=== PATIENT | female | born 1995 | race Hispanic/Latino ===

== ENCOUNTER 2021-01-29 16:07 | Emergency (ER) | payer OTHER ==
[2021-01-29 18:43] LABS: Urine Blood 1+ (Negative); Urine Glucose Negative (Negative); Urine Protein Negative (Negative); Urine Specific Gravity >=1.030 (1.005-1.030); Urine pH 6.5 (5.0-7.0)
[2021-01-29 19:34] LABS: Urine Bacteria <20 /HPF (<20); Urine RBC <5 /HPF (NONE SEEN)
--- NOTE | 2021-01-29 19:56 | RAD REPORT ---
EXAM DESCRIPTION: US - Matter Rosemarie Tm 1 - 01/29/2021 7:41 pm CLINICAL HISTORY: VAGINAL BLEEDING Early . COMPARISON: <Comparisons> FINDINGS: A single gestational sac is seen within the uterus. The shape of the sac is within normal limits for gestational age. Within the sac is a single fetus with estimated gestational age of 15 wee ks 6 days. Estimated date of delivery is 07/17/2021. Heart rate is 149 BPM. Placenta is posterior low lying. The maternal adnexa and ovaries are within normal limits. Normal Doppler blood flow was demonstrated to both ovaries. IMPRESSION: Single live early intrauterine gestation with estimated gestational age of 15 weeks 6 da ys, YESSICA 07/17/2021. Posterior low-lying placenta.
[2021-01-29 19:57] LABS: BUN Blood Urea Nitrogen 8 mg/dL (7-18); Bicarbonate 23 mmol/L (21-32); Glucose Level 111 mg/dL (74-106); HCG, Quantitative 15514 mIU/mL (1-3); Potassium 3.3 mmol/L (3.5-5.1); Sodium Level 138 mmol/L (136-145)
[2021-01-29 20:27] LABS: Urine Specific Gravity/Preg >1.030 (1.005-1.030)
[2021-01-29 20:36] LABS: Absolute Lymphocytes (CBC) 1.9 K/uL (0.7-4.9); Basophils % 0.3 % (0-1.3); Hematocrit 32.1 % (36.0-45.0); MPV 9.5 fL (7.6-11.3); RBC Red Blood Cell Count 3.26 M/uL (3.86-4.86)
--- NOTE | 2021-01-29 21:59 | EDPHYS ---
Physician Documentation [facility] Name: Angely Farris Age: 25 yrs Sex: Female : 1995 Arrival Date: 01/29/2021 Time: 16:08 Bed 26 Private MD: ED Physician José Manuel Tompkins HPI: 01/29 19:03 This 25 yrs old Female presents to ER via Ambulatory with complaints of pm1 Vaginal Bleeding - 16 wks preg, Pelvic Pain. 19:03 The patient presents with vaginal bleeding that is light, with wiping only. Onset: The pm1 symptoms/episode began/occurred today. Modifying factors: The symptoms are alleviated by nothing, the symptoms are aggravated by nothing. Associated signs and symptoms: Pertinent positives: cramping, Pertinent negatives: diarrhea, dysuria, fever, nausea, vomiting. Severity of symptoms: in the emergency department the symptoms have improved. The patient is sexually active. The patient's method of control includes nothing. The patient has not experienced similar symptoms in the past. The patient has been recently seen by a physician: Dr. Mcbride. Has been seeing him every 3 weeks during this . 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 - Social history:: Smoking status: Patient denies any tobacco usage or history of. ROS: 19:03 Positive for vaginal bleeding, Negative for urinary symptoms, vaginal discharge. pm1 19:03 Constitutional: Negative for fever, chills, and weight loss, Cardiovascular: Negative for chest pain, palpitations, and edema, Respiratory: Negative for shortness of breath, cough, wheezing, and pleuritic chest pain. 19:03 Back: Negative for injury and pain, MS/Extremity: Negative for injury and deformity, Skin: Negative for injury, rash, and discoloration. 19:03 Eyes: Negative for injury, pain, redness, and discharge, ENT: Negative for injury, pain, and discharge, Neuro: Negative for headache, weakness, numbness, tingling, and seizure. 19:03 Abdomen/GI: Positive for abdominal cramps, of the suprapubic area, Negative for nausea, vomiting, and diarrhea. 19:03 : Positive for vaginal bleeding, Negative for urinary symptoms. Exam: 19:03 Constitutional: This is a well developed, well nourished patient who is awake, alert, pm1 and in no acute distress. Head/Face: Normocephalic, atraumatic. 19:03 Back: No spinal tenderness. No costovertebral tenderness. Full range of motion. 19:03 Skin: Warm, dry with normal turgor. Normal color with no rashes, no lesions, and no evidence of cellulitis. MS/ Extremity: Pulses equal, no cyanosis. Neurovascular intact. Full, normal range of motion. 19:03 ENT: External ear(s): are unremarkable, Mouth: Oral mucosa: normal, pink and intact, moist, Voice: no acute changes. 19:03 Cardiovascular: Rate: normal, Rhythm: regular, Pulses: no pulse deficits are appreciated, Edema: is not appreciated. 19:03 Respiratory: Exam negative for acute changes, respiratory distress, shortness of breath, Breath sounds: are clear throughout. 19:03 Abdomen/GI: Inspection: gravid appearance, is noted, Palpation: abdomen is soft and non-tender, in all quadrants. 19:03 Neuro: Exam negative for acute changes, Orientation: is normal, Motor: is normal, moves all fours. Vital Signs: 16:54 BP 101 / 66; Pulse 77; Resp 17 S; Temp 97.9(TE); Pulse Ox 99% on R/A; Weight 52.62 kg jd3 (R); Height 4 ft. 11 in. (149.86 cm) (R); Pain 8/10; 20:32 BP 105 / 61; Pulse 77; Resp 18; Pulse Ox 100% on R/A; zb 21:38 Pulse 78; Resp 16; Pulse Ox 99% on R/A; zb 16:54 Body Mass Index 23.43 (52.62 kg, 149.86 cm) jd3 MDM: 18:46 Patient medically screened. pm1 20:51 Data reviewed: vital signs. Data interpreted: Pulse oximetry: on room air. pm1 21:58 Counseling: I had a detailed discussion with the patient and/or guardian regarding: the pm1 historical points, exam findings, and any diagnostic results supporting the discharge/admit diagnosis, lab results, radiology results, the need for outpatient follow up, an OB/Gyne specialist, to return to the emergency department if symptoms worsen or persist or if there are any questions or concerns that arise at home. 01/29 18:43 Order name: Urine Dipstick-Ancillary EDMD 01/29 18:53 Order name: Urine Microscopic Only; Complete Time: 19:43 pm1 01/29 18:53 Order name: Quantitative Hcg; Complete Time: 20:08 pm1 01/29 18:53 Order name: Abo/rh Typing; Complete Time: 21:59 pm1 01/29 18:53 Order name: Basic Metabolic Panel; Complete Time: 20:08 pm1 01/29 18:53 Order name: CBC with Diff pm1 01/29 18:53 Order name: Urine Test (obtain specimen); Complete Time: 19:17 pm1 01/29 18:53 Order name: IV Saline Lock; Complete Time: 19:17 pm1 01/29 18:53 Order name: Labs collected and sent; Complete Time: 19:17 pm1 01/29 18:53 Order name: NPO; Complete Time: 19:00 pm1 01/29 18:53 Order name: Urine Dipstick-Ancillary (obtain specimen); Complete Time: 19:17 pm01/29 19:44 Order name: Matter Eval Tm 1; Complete Time: 20:08 [facility] 01/29 19:55 Order name: Urine --Ancillary (enter results); Complete Time: 20:40 tt3 Administered Medications: No medications were administered Disposition: 01/30 06:52 Co-signature as Attending Physician, José Manuel Tompkins MD. rn Disposition: 01/29/21 21:58 Discharged to Home. Impression: Threatened . - Condition is Stable. - Discharge Instructions: Threatened Miscarriage, Pelvic Rest. - Medication Reconciliation Form, Thank You Letter, Antibiotic Education, Prescription Opioid Use form. - Follow up: Asif Reyes MD; When: 2 - 3 days; Reason: Recheck today's complaints, Continuance of care, Re-evaluation by your physician. - Problem is new. - Symptoms have improved. Signatures: Dispatcher [employer] EDMS José Manuel Tompkins MD MD rn Marinas, Patrick, HEARING HEALTHCARE PRACTITIONER HEARING HEALTHCARE PRACTITIONER pm1 Keon Daniels RN RN Gloria Diane RN RN zb Corrections: (The following items were deleted from the chart) 01/29 19:44 18:54 Transvaginal Ob+US.RAD.BRZ ordered. [facility] 22:16 21:58 01/29/2021 21:58 Discharged to Home. Impression: Threatened . Condition zb is Stable. Forms are Medication Reconciliation Form, Thank You Letter, Antibiotic Education, Prescription Opioid Use. Follow up: Asif Reyes; When: 2 - 3 days; Reason: Recheck today's complaints, Continuance of care, Re-evaluation by your physician. Problem is new. Symptoms have improved. pm1
--- NOTE | 2021-01-29 21:59 | ER ---
Nurse's Notes [facility] Name: Angely Farris Age: 25 yrs Sex: Female : 1995 Arrival Date: 01/29/2021 Time: 16:08 Bed 26 Private MD: Diagnosis: Threatened Presentation: 01/29 16:52 Chief complaint: Patient states: "I am currently 16 weeks . I am having jd3 cramping that started to get more regular to the point were all of a sudden I am having spotting now. 3 rd .". Coronavirus screen: At this time, the client does not indicate any symptoms associated with coronavirus-19. Ebola Screen: Patient negative for fever greater than or equal to 101.5 degrees Fahrenheit, and additional compatible Ebola Virus Disease symptoms. Initial Sepsis Screen: Does the patient meet any 2 criteria? No. Patient's initial sepsis screen is negative. Does the patient have a suspected source of infection? No. Patient's initial sepsis screen is negative. Risk Assessment: Do you want to hurt yourself or someone else? Patient reports no desire to harm self or others. Onset of symptoms was January 29, 2021. 16:52 Method Of Arrival: Ambulatory jd3 16:52 Acuity: CYNDI 3 jd3 Triage Assessment: 22:14 General: Behavior is calm, cooperative. 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 - Social history:: Smoking status: Patient denies any tobacco usage or history of. Screenin:20 Abuse screen: Denies threats or abuse. Denies injuries from another. Nutritional zb screening: No deficits noted. Tuberculosis screening: No symptoms or risk factors identified. Fall Risk None identified. Assessment: 19:00 General: Appears in no apparent distress. uncomfortable. Pain: Complains of pain in zb groin, right femoral area and left femoral area Pain currently is 6 out of 10 on a pain scale. Quality of pain is described as crampy, Pain began 1 day ago. Neuro: Level of Consciousness is awake, alert, obeys commands, Oriented to person, place, time, situation. Cardiovascular: Heart tones S1 S2. Respiratory: Airway is patent Respiratory effort is even, unlabored, Respiratory pattern is regular, symmetrical. GI: Patient currently denies abdominal pain, diarrhea, nausea, vomiting. : Urine is clear, Reports pain in suprapubic area vaginal bleeding that is bright red, light flow, since yesterday. does not currently report any bleeding at this time. Derm: Skin is intact, is healthy with good turgor, Skin is dry, Skin is normal. Musculoskeletal: Circulation, motion, and sensation intact. Range of motion: intact in all extremities. 19:20 Reassessment: patient made aware that she is currently NPO at the moment. PVU. zb 19:40 Reassessment: Reassessment: Us at bedside. zb 20:12 Reassessment: ECP at bedside. zb 20:35 Reassessment: Patient appears in no apparent distress at this time. Patient and/or zb family updated on plan of care and expected duration. Pain level reassessed. Patient is alert, oriented x 3, equal unlabored respirations, skin warm/dry/pink. patient waiting results. no changes at this time. denies any current bleed at this time. 21:37 Reassessment: Patient appears in no apparent distress at this time. Patient and/or zb family updated on plan of care and expected duration. Pain level reassessed. Patient is alert, oriented x 3, equal unlabored respirations, skin warm/dry/pink. patient waiting for blood results. family remains at bedside. Vital Signs: 16:54 BP 101 / 66; Pulse 77; Resp 17 S; Temp 97.9(TE); Pulse Ox 99% on R/A; Weight 52.62 kg jd3 (R); Height 4 ft. 11 in. (149.86 cm) (R); Pain 8/10; 20:32 BP 105 / 61; Pulse 77; Resp 18; Pulse Ox 100% on R/A; zb 21:38 Pulse 78; Resp 16; Pulse Ox 99% on R/A; zb 16:54 Body Mass Index 23.43 (52.62 kg, 149.86 cm) [facility] ED Course: 16:08 Patient arrived in ED. as 16:54 Triage completed. jd3 16:56 Arm band placed on. jd3 18:28 Glorai Martin RN is Primary Nurse. zb 18:46 Teddy Bynum NP is PHCP. pm1 18:46 José Manuel Tompkins MD is Attending Physician. pm1 19:20 Patient has correct armband on for positive identification. Pulse ox on. NIBP on. Door zb closed. Noise minimized. 19:20 Inserted saline lock: 20 gauge in right antecubital area, using aseptic technique. zb Blood collected. 19:44 Matter Eval Tm 1 In Process Unspecified. EDMS 21:58 Asif Reyes MD is Referral Physician. pm1 22:14 Urine Dipstick-Ancillary Sent. zb 22:14 No provider procedures requiring assistance completed. IV discontinued, intact, zb bleeding controlled, No redness/swelling at site. Pressure dressing applied. Administered Medications: No medications were administered Outcome: 21:58 Discharge ordered by . pm1 22:15 Discharged to home ambulatory. zb 22:15 Condition: stable 22:15 Discharge instructions given to patient, family, Instructed on discharge instructions, follow up and referral plans. Demonstrated understanding of instructions, follow-up care. 22:16 Patient left the ED. zb Signatures: Dispatcher [employer] EDMariela Bauer as Teddy Bynum NP [employer] pm1 Koen Daniels RN RN jGloria Berg RN RN zb
[2021-01-30 00:42] VITALS: BP 105/61
[2021-01-30 00:44] VITALS: O2SAT 99
== END 2021-01-29 22:16 | disposition home or self-care (01) ==
LOC: ER 16:07
DX: O20.0 Threatened abortion (principal); Z3A.16 16 weeks gestation of pregnancy
CPT/HCPCS: 36415; 76801; 80048; 81003; 81015; 81025; 84702; 85025; 86900; 86901; 99284

== ENCOUNTER 2021-06-28 08:31 | Inpatient (IN) | payer OTHER ==
[2021-06-28] MEDS ORDERED: Ringers Lactate 1,000 ML IV PRN (11:51)
[2021-06-28] MEDS ORDERED: PROMETHAZINE INJ 25 MG/ML AMP IV PRN (11:51)
[2021-06-28] MEDS ORDERED: METHYLERGONOVINE 0.2MG/ML AMP IM PRN ×2 (11:51→20:24)
[2021-06-28] MEDS ORDERED: BUTORPHANOL 1 MG/ML INJ IV PRN (11:51)
[2021-06-28] MEDS ORDERED: CARBOPROST TROME 250 MCG/ML IM PRN (11:51)
[2021-06-28] MEDS ORDERED: Ringers Lactate 1,000 ML IV ONE (11:57)
[2021-06-28] MEDS ORDERED: OXYTOCIN/LR 20 UNIT/1,000 ML BAG IV SCH ×2 (12:00→22:00)
[2021-06-28] MEDS ORDERED: Ringers Lactate 1,000 ML IV SCH (12:00)
[2021-06-28 12:12] VITALS: BMI 26.5
[2021-06-28 12:32] LABS: Basophils % 0.4 % (0-1.3); Hematocrit 33.2 % (36.0-45.0); Lymphocytes % 23.6 % (15.3-44.8); MPV 8.8 fL (7.6-11.3); RBC Red Blood Cell Count 3.33 M/uL (3.86-4.86)
[2021-06-28 12:43] LABS: Urine Appearance CLOUDY (Clear); Urine Bilirubin NEGATIVE (Negative); Urine Blood 2+ (Negative); Urine Color YELLOW (Yellow); Urine Glucose NEGATIVE (Negative); Urine Protein NEGATIVE (Negative); Urine Urobilinogen 0.2 mg/dL (0.2-1.0)
[2021-06-28 13:08] LABS: Urine Bacteria 20-50 /HPF (<20); Urine RBC >50 /HPF (NONE SEEN)
[2021-06-28] MEDS ORDERED: TRANEXAMIC ACID 1,000 MG in NA CHLORIDE 0.9% 50 ML IV ONE (14:34)
[2021-06-28] MEDS ORDERED: OXYTOCIN 10 UNIT/ML ML IV ONE (15:00)
[2021-06-28] MEDS ORDERED: OXYTOCIN 10 UNIT/ML ML IM ONE (15:00)
[2021-06-28] MEDS ORDERED: miSOPROStoL 100 MCG TAB PO SCH ×2 (17:00)
--- NOTE | 2021-06-28 17:11 | PREOPHP ---
Date of Admission: 06/28/2021 History Of Present Illness: Angely Farris is a 25-year-old, 3, para 2, at 37 weeks and 2-3 days, history of oligohydramnios with this . Came in for evaluation. She was last seen in the office, was about 2.5 to 3 cm, now she is 3.5 and vj every 5-6 minutes. It was decided to proceed with delivery at this point secondary to the oligohydramnios. The patient also has a hist ory of significant hypotonus after delivery of her last baby and we will be prepared for that this ti me with medicines in the room. Full labor talk given. Family History: Maternal grandmother with breast cancer. Maternal aunt with breast cancer. An uncl e with bone cancer. Genetic studies and testing have been discussed with the patient. Past Medical History: No serious illnesses. Past Surgical History: No previous surgeries. Allergies: NO ALLERGIES. Medications: Prior to admission; vitamins and iron. Social History: No cigarette smoking. Physical Examination: HEENT: Clear. Pupils equal, round, and reactive to light and accommodation. Conjunctivae well perf used. No oral, lingual, or buccal lesions. Chest and Lungs: Clear. Heart: Without murmurs, thrills, heaves, or rubs. Breasts: Without masses on previous visits. Abdomen: Appropriate for gestational stage. Extremities: Clear without edema, cyanosis, or clubbing. Assessment And Plan: The patient is now 4 cm, rupture of membranes, clear fluid. She is on light Pi tocin. Anticipate delivery sometime later this afternoon or this evening. Rh positive, immune to Rubella. Negative strep screen. ARPITAC/ABRAML Voice ID: [id number]
[2021-06-28] MEDS ORDERED: PROMETHAZINE INJ 25 MG/ML AMP IM PRN (17:40)
--- NOTE | 2021-06-28 18:17 | PN ---
The patient is resting very comfortably. She has had no analgesics. She was just active a few minut es ago by the nurse who says she is 5 cm. Baby looks good. She is making good progress and looks li ke she will go natural as she said she intended. ZULEYMA/SATNAM Voice ID: [id number] Report ID: [id number]
[2021-06-28] MEDS ORDERED: INFLUENZA VACCINE (for 6+ mo) 0.5 ML DOSE IMVAC ONE (19:00)
--- NOTE | 2021-06-28 20:11 | PN ---
The patient is 5 cm, but the baby has not come down at all. She has no more phase that what she was. Baby looks good. We need to continue to increase Pitocin. ZULEYMA/SATNAM Voice ID: [id number] Report ID: [id number]
[2021-06-28] MEDS ORDERED: ACETAMINOPHEN 500 MG TAB PO PRN (20:24)
[2021-06-28] MEDS ORDERED: BISACODYL 10 MG RECTAL SUPP PR PRN (20:24)
[2021-06-28] MEDS ORDERED: IBUPROFEN 200 MG TAB PO PRN (20:24)
[2021-06-28] MEDS ORDERED: DIPHENHYDRAMINE 25 MG TAB/CAP PO PRN (20:24)
[2021-06-28] MEDS ORDERED: DOCUSATE NA/SENNA CONC 1 TAB PO PRN (20:24)
[2021-06-28] MEDS ORDERED: Oxycodone HCl/Acetaminophen 1 TAB TAB PO PRN ×2 (20:24)
[2021-06-28] MEDS ORDERED: OXYTOCIN/LR 20 UNITS/1,000 ML BAG IV SCH (21:00)
[2021-06-28] MEDS: miSOPROStoL 100 MCG TAB PO SCH (21:15)
[2021-06-29] MEDS: miSOPROStoL 100 MCG TAB PO SCH ×2 (01:07→05:14)
[2021-06-29 19:57] VITALS: BP 105/65; TEMP 96.7
[2021-06-29 21:48] LABS: RPR (Rapid Plasma Reagin) NON-REACT (NON-REACT)
[2021-06-30 20:54] LABS: HBsAG Nonreactive (Nonreactive)
--- NOTE | 2021-07-02 12:06 | OP ---
Surgeon: Asif Reyes MD Description Of Procedure: Angely Farris is a 25-year-old 3, para 2, 37 weeks 2 days, noted to have oligohydramnios, came into our labor and delivery area, noted to be in early labor, 3.5 cm on admission. Rupture of membranes, clear fluid. Used Lamaze breathing techniques. Had 1 mg of Stado l, 25 mg of Phenergan. Stadol IV, Phenergan IM. Second stage of approximately 20 minutes or less. Spontaneous vaginal delivery of a 7-pound 14-ounce female, Apgars 9 and 9. Nuchal cord loosely x1. No episiotomy. No laceration. Schultze delivery of the placenta. Uterus contracted down quite well with IV drip Pitocin, massage, and 0.2 mg of Methergine administered after delivery of the baby. Fritz melendrez had a history of severe bleeding with her last delivery. Rh positive, immune to Rubella. Nega tive beta strep screen. Final Diagnoses: Term intrauterine at 37 weeks 2 days, oligohydramnios, spontaneous labor, vaginal delivery, nuchal cord x1. NBC/MODL Voice ID: [id number] Report ID: [id number]
--- NOTE | 2021-07-02 12:06 | DS ---
Date of Discharge: 06/29/2021 A 25-year-old 3, para 2, 37 weeks 2 days, noted to have significant oligohydramnios, came in early labor. Subsequently, delivered a 7-pound 14-ounce female, Apgars 9 and 9. No episiotomy. No lacerations. Loose nuchal cord. Schultze delivery of the placenta. The patient had a history of se melvin hypotonus with the last delivery, was given 0.2 mg of Methergine actually before the placenta wa s delivered. It was ordered after the placenta was delivered, but did not seem to cause any problems . The uterus contracted down very well. Minimal lochia. ; afebrile, ambulating and voidi ng. Lochia is normal. She will be dismissed either late this evening or tomorrow morning, to report back to my office in 6 weeks for followup, to report any temperature elevation of 100 degrees or gre ater, severe pain, heavy bleeding, or any other type of abnormalities. She has not taken any analges ics. She only had Stadol 1 mg 1 time during her labor and has very high pain threshold. Final Diagnoses: Intrauterine gestation, 37 weeks 2 days; oligohydramnios; spontaneous labor; vagina l delivery. Immunizations, Tdap, flu shot, COVID shots all offered. ZULEYMA/SATNAM Voice ID: [id number] Report ID: [id number]
== END 2021-06-29 22:10 | disposition home or self-care (01) | DRG 807 ==
LOC: L&D 08:31 → 2ND-WC 11:23
PROVIDERS: ADMIT Specialist; ATTEND Specialist
PROC: 10E0XZZ Delivery of Products of Conception, External Approach (ICD-10-PCS; principal; 2021-06-28)
PROC: 10907ZC Drainage of Amniotic Fluid, Therapeutic from Products of Conception, Via Natural or Artificial Opening (ICD-10-PCS; 2021-06-28)
DX: O41.03X0 Oligohydramnios, third trimester, not applicable or unspecified (principal); Z37.0 Single live birth; Z3A.37 37 weeks gestation of pregnancy; Z23 Encounter for immunization; Z20.822 Contact with and (suspected) exposure to COVID-19
CPT/HCPCS: 36415; 76805; 81001; 85025; 86592; 86901; 87340; J0595; J2210; J2550; J2590; J7120; U0003